=== PATIENT | male | born 1970 | race Caucasian/White ===

== ENCOUNTER 2021-12-30 10:07 | Inpatient (IN) | payer OTHER ==
[2021-12-30] MEDS ORDERED: ACETAMINOPHEN 325 MG TABLET (FP) PO PRN ×2 (10:47)
[2021-12-30] MEDS ORDERED: MAG HYDROX/AL HYDROX/SIMETH 30 ML UNIT-DOSE CUP PO PRN (10:47)
[2021-12-30] MEDS ORDERED: ONDANSETRON *ODT* 4 MG TABLET SL PRN (10:47)
[2021-12-30] MEDS ORDERED: MAGNESIUM HYDROX 2400MG/30ML ORAL SUSPENSION 30 ML CUP PO PRN (10:47)
[2021-12-30] MEDS ORDERED: MAGNESIUM CITRATE 300 ML BOTTLE PO PRN (10:47)
[2021-12-30] MEDS ORDERED: IBUPROFEN 400 MG TABLET (FP) PO PRN (10:47)
[2021-12-30] MEDS ORDERED: chlordiazePOXIDE HCL 25 MG CAPSULE PO PRN (10:47)
[2021-12-30] MEDS ORDERED: BISMUTH SUBSALICYLATE 524 MG/30 ML PO PRN (10:47)
[2021-12-30] MEDS ORDERED: MENTHOL/PHENOL 1 EACH UD MM PRN (10:47)
[2021-12-30] MEDS ORDERED: LOPERAMIDE HCL 2 MG CAPSULE PO PRN (10:47)
[2021-12-30] MEDS ORDERED: NICOTINE 10 MG CARTRIDGE (INHALER) IH PRN (10:47)
[2021-12-30 10:56] VITALS: BMI 42.3
[2021-12-30] MEDS: hydrOXYzine PAMOATE 25 MG CAPSULE (FP) PO SCH ×3 (14:09→22:48)
[2021-12-30] MEDS: chlordiazePOXIDE HCL 25 MG CAPSULE PO SCH ×3 (14:09→22:48)
[2021-12-30] MEDS: NICOTINE 14 MG/24 HOURS TOPICAL PATCH TD SCH (14:10)
[2021-12-30] MEDS: PRENATAL VITAMINS W/ FOLIC ACID TABLET (FP) PO SCH (14:15)
[2021-12-30 17:15] LABS: CALCIUM 9.3 mg/dL (8.5-10.1)
[2021-12-30 17:16] LABS: ALBUMIN 4.3 g/dl (3.4-5.0)
[2021-12-30 17:19] LABS: CREATININE 0.9 mg/dL (0.55-1.3)
[2021-12-30 17:20] LABS: HEMATOCRIT 36.8 % (35.4-49); HEMOGLOBIN 12.9 GM/dL (11.7-16.9); MCH 30.7 pg (25.7-33.7); MCHC 35.1 g/dl (32.0-35.9); MEAN CELL VOLUME 87.7 fl (80-96); MEAN PLT VOLUME 6.9 fl (7.5-11.1); PLATELET COUNT 234 10^3/uL (134-434); RBC 4.19 M/mm3 (4.00-5.60); RDW 13.4 % (11.9-15.9); WHITE BLOOD COUNT 4.8 K/mm3 (4.0-10.0)
[2021-12-30 17:21] LABS: BILIRUBIN,TOTAL 0.4 mg/dL (0.2-1); TOT PROT 8.4 g/dl (6.4-8.2)
[2021-12-30] MEDS: THIAMINE HCL 100 MG TABLET (FP) PO SCH (22:48)
[2021-12-30] MEDS: MELATONIN 5 MG TABLETS PO SCH (22:48)
[2021-12-31] MEDS: hydrOXYzine PAMOATE 25 MG CAPSULE (FP) PO SCH ×5 (06:33→22:26)
[2021-12-31] MEDS: chlordiazePOXIDE HCL 25 MG CAPSULE PO SCH ×4 (06:33→22:26)
[2021-12-31] MEDS ORDERED: methaDONE HCL 10 MG TABLET PO SCH (09:15)
[2021-12-31] MEDS ORDERED: methaDONE 80 MG, methaDONE 20 MG PO ONE (09:15)
[2021-12-31] MEDS ORDERED: methaDONE HCL 10 MG TABLET ONE (09:53)
[2021-12-31] MEDS ORDERED: methaDONE HCL 40 MG DISPERSABLE TABLET ONE (09:54)
[2021-12-31] MEDS: PRENATAL VITAMINS W/ FOLIC ACID TABLET (FP) PO SCH (10:38)
[2021-12-31] MEDS: amLODIPine BESYLATE 10 MG TABLET (FP) PO SCH (10:38)
[2021-12-31] MEDS: NICOTINE 14 MG/24 HOURS TOPICAL PATCH TD SCH (10:39)
[2021-12-31] MEDS: DULoxetine HCL 30 MG CAPSULE.DR PO SCH ×2 (15:00→22:25)
[2021-12-31] MEDS: METHOCARBAMOL 500 MG TABLET PO PRN ×2 (17:42→22:29)
[2021-12-31] MEDS: ARIPiprazole 15 MG TABLET PO SCH (22:25)
[2021-12-31] MEDS: MELATONIN 5 MG TABLETS PO SCH (22:25)
[2021-12-31] MEDS: THIAMINE HCL 100 MG TABLET (FP) PO SCH (22:26)
[2022-01-01] MEDS ORDERED: methaDONE HCL 10 MG TABLET ONE (04:13)
[2022-01-01] MEDS ORDERED: methaDONE HCL 40 MG DISPERSABLE TABLET ONE (04:14)
[2022-01-01] MEDS: methaDONE 80 MG, methaDONE 20 MG PO SCH (05:49)
[2022-01-01] MEDS: hydrOXYzine PAMOATE 25 MG CAPSULE (FP) PO SCH ×5 (05:49→22:58)
[2022-01-01] MEDS: chlordiazePOXIDE HCL 25 MG CAPSULE PO SCH ×4 (05:50→22:55)
[2022-01-01] MEDS: NICOTINE 14 MG/24 HOURS TOPICAL PATCH TD SCH (10:45)
[2022-01-01] MEDS: DULoxetine HCL 30 MG CAPSULE.DR PO SCH ×2 (10:45→22:56)
[2022-01-01] MEDS: amLODIPine BESYLATE 10 MG TABLET (FP) PO SCH (10:45)
[2022-01-01] MEDS: PRENATAL VITAMINS W/ FOLIC ACID TABLET (FP) PO SCH (10:45)
[2022-01-01 14:08] LABS: SARS-CoV-2 NAA Not Detected (Not Detected)
[2022-01-01] MEDS: THIAMINE HCL 100 MG TABLET (FP) PO SCH (22:55)
[2022-01-01] MEDS: ARIPiprazole 15 MG TABLET PO SCH (22:55)
[2022-01-01] MEDS: MELATONIN 5 MG TABLETS PO SCH (22:56)
[2022-01-02] MEDS ORDERED: chlordiazePOXIDE HCL 10 MG CAPSULE PO PRN
[2022-01-02] MEDS ORDERED: methaDONE HCL 10 MG TABLET ONE (04:51)
[2022-01-02] MEDS ORDERED: methaDONE HCL 40 MG DISPERSABLE TABLET ONE (04:51)
[2022-01-02] MEDS: methaDONE 80 MG, methaDONE 20 MG PO SCH (05:51)
[2022-01-02] MEDS: chlordiazePOXIDE HCL 10 MG CAPSULE PO SCH ×4 (05:52→22:14)
[2022-01-02] MEDS: hydrOXYzine PAMOATE 25 MG CAPSULE (FP) PO SCH ×5 (05:52→22:16)
[2022-01-02] MEDS: METHOCARBAMOL 500 MG TABLET PO PRN (05:53)
[2022-01-02] MEDS: amLODIPine BESYLATE 10 MG TABLET (FP) PO SCH (10:23)
[2022-01-02] MEDS: DULoxetine HCL 30 MG CAPSULE.DR PO SCH ×2 (10:23→22:14)
[2022-01-02] MEDS: PRENATAL VITAMINS W/ FOLIC ACID TABLET (FP) PO SCH (10:23)
[2022-01-02] MEDS: NICOTINE 14 MG/24 HOURS TOPICAL PATCH TD SCH (10:23)
[2022-01-02] MEDS: ARIPiprazole 15 MG TABLET PO SCH (22:14)
[2022-01-02] MEDS: THIAMINE HCL 100 MG TABLET (FP) PO SCH (22:14)
[2022-01-02] MEDS: MELATONIN 5 MG TABLETS PO SCH (22:17)
[2022-01-03] MEDS ORDERED: methaDONE HCL 10 MG TABLET ONE (04:26)
[2022-01-03] MEDS ORDERED: methaDONE HCL 40 MG DISPERSABLE TABLET ONE (04:27)
[2022-01-03] MEDS: chlordiazePOXIDE HCL 10 MG CAPSULE PO SCH ×2 (06:27→18:10)
[2022-01-03] MEDS: hydrOXYzine PAMOATE 25 MG CAPSULE (FP) PO SCH ×5 (06:28→22:07)
[2022-01-03] MEDS: methaDONE 80 MG, methaDONE 20 MG PO SCH (06:28)
[2022-01-03] MEDS: NICOTINE 14 MG/24 HOURS TOPICAL PATCH TD SCH (10:28)
[2022-01-03] MEDS: PRENATAL VITAMINS W/ FOLIC ACID TABLET (FP) PO SCH (10:28)
[2022-01-03] MEDS: DULoxetine HCL 30 MG CAPSULE.DR PO SCH ×2 (10:28→22:07)
[2022-01-03] MEDS: amLODIPine BESYLATE 10 MG TABLET (FP) PO SCH (10:30)
[2022-01-03] MEDS: ARIPiprazole 15 MG TABLET PO SCH (22:07)
[2022-01-03] MEDS: MELATONIN 5 MG TABLETS PO SCH (22:07)
[2022-01-03] MEDS: THIAMINE HCL 100 MG TABLET (FP) PO SCH (22:07)
[2022-01-04] MEDS ORDERED: methaDONE HCL 40 MG DISPERSABLE TABLET ONE (04:25)
[2022-01-04] MEDS ORDERED: methaDONE HCL 10 MG TABLET ONE (04:25)
[2022-01-04] MEDS ORDERED: chlordiazePOXIDE HCL 10 MG CAPSULE PO ONE (05:00)
[2022-01-04] MEDS: methaDONE 80 MG, methaDONE 20 MG PO SCH (06:38)
[2022-01-04] MEDS: hydrOXYzine PAMOATE 25 MG CAPSULE (FP) PO SCH (06:38)
[2022-01-04 09:24] VITALS: BP 133/79; PULSE 93; TEMP 97.5
[2022-01-05 11:09] LABS: SARS-CoV-2 NAA Not Detected (Not Detected)
== END 2022-01-04 09:50 | disposition home or self-care (01) | DRG 897 ==
LOC: YASAS 10:07 → Y6N 13:12
PROVIDERS: ADMIT Allergy & Immunology; ATTEND Allergy & Immunology
PROC: HZ2ZZZZ Detoxification Services for Substance Abuse Treatment (ICD-10-PCS; principal; 2021-12-30)
DX: F10.230 Alcohol dependence with withdrawal, uncomplicated (principal); F11.20 Opioid dependence, uncomplicated; F14.20 Cocaine dependence, uncomplicated; F19.282 Other psychoactive substance dependence with psychoactive substance-induced sleep disorder; F19.280 Other psychoactive substance dependence with psychoactive substance-induced anxiety disorder; Z68.41 Body mass index [BMI] 40.0-44.9, adult; F13.2 Sedative, hypnotic or anxiolytic-related dependence; F25.1 Schizoaffective disorder, depressive type; F19.24 Other psychoactive substance dependence with psychoactive substance-induced mood disorder; F31.9 Bipolar disorder, unspecified; E78.5 Hyperlipidemia, unspecified; I10 Essential (primary) hypertension; Z62.810 Personal history of physical and sexual abuse in childhood; E66.01 Morbid (severe) obesity due to excess calories; Z56.0 Unemployment, unspecified; Z59.00 Homelessness unspecified
CPT/HCPCS: 36415; 80053; 85027; 86780; 93005; 93010; C9803; U0003; U0005